=== PATIENT | male | born 1965 | race Caucasian/White ===

== ENCOUNTER 2018-08-29 08:25 | Observation (INO) ==
--- NOTE | 2018-08-21 09:21 | Anesthesiology Consultation ---
Date of Service August 21, 2018 Assessment & Plan (1) Encounter for pre-operative examination: -No previous anesthesia records. -Patient does have known sinus infection and has an elevated WBC from that. Is seeing PCP today for that. Can repeat CBC on AM day of surgery at anesthesia /surgeon's discretion. Patient aware to let surgeon know if he is still symptomatic as surgery date approaches. Chart Review Chart Review: Acceptable Risk for Surgery and Patient seen in Pre Admission Testing Consults Requested none Teaching & Discussion Pre-Anesthesia Teaching/Discussion Notes: Instructed NPO after midnight before surgery. History Surgery Operation Date: 08/29/18 09:35 Proposed Procedures p Right Parotidectomy - Fernanda Ross MD Height/Weight Height: 6 ft 2 in Weight: 116.3 kg Allergies Allergy/AdvReac Type Severity Reaction Status Date / Time No Known Allergies Allergy Verified 08/19/18 15:59 Medications Home Medications Medication Instructions Recorded Confirmed Last Taken No Known Home Medications 08/19/18 08/19/18 Unknown Past Medical History Medical History Benign parotid tumor Exercise / Class Metabolic Activity II 4-5 Yardwork/Stairs/Walk up hill (Works in a steel mill and moves constantly. Able to climb FOS. Denies CP or SOB with activity. ) Past Surgical History Surgical History H/O hand surgery Left 3rd finger reattachment History of colonoscopy History of esophagogastroduodenoscopy (EGD) History of tonsillectomy Past Anesthesia History No Hx of Anesthesia Complications and No Family Hx of Anesthesia Complications History of PONV No Hx of PONV and No Hx of Motion Sickness Social History Smoking Status: Current every day smoker tobacco type: cigarettes Smoking cigarettes per day: 1 PPD X 18 YEARS Do You Dip or Chew Tobacco: No (QUIT) Hx Alcohol Use: Yes Alcohol type: beer alcohol intake frequency: a few times a month Hx Substance Use: No Review of Systems Patient denies chest pain, shortness of breath, dyspnea on exertion, wheezing, palpitations. +Joint Pain (Knees occasionally) +Acid Reflux (rarely, nothing that requires medications) +Cough (in the morning) Physical Exam Vital Signs BP: 131/73 P: 59 R: 16 T: 98.0 SPO2: 96% on RA Constitutional + obese ENMT Thyromental Distance: > or= 3.5 Finger Breadths (3.5) Mallampati Class: II Neck normal visual inspection, trachea midline and + facial hair (Advised); neck extension not limited Respiratory normal respiratory effort Auscultation: lungs clear to auscultation bilaterally Cardiovascular Rate/Rhythm: regular rate and regular rhythm Heart Sounds: no murmur Vessels: no carotid bruit Neurologic moves all extremities Psychiatric Orientation: alert and oriented x 3 Testing Electrocardiogram Date: 08/21/18 Findings: + SB @ (49) Laboratory Results 08/21/18 09:50 Patient currently has known sinus infection. Has appointment today with PCP to get antibiotic. Knows to let surgeon know if he is still symptomatic as the surgery date approaches next week.
[2018-08-21 10:46] LABS: Basophils # (auto) 0.05 K/uL (0-0.2); Basophils % (auto) 0.3 %; Eosinophils # (auto) 0.11 K/uL (0-0.5); Eosinophils % (auto) 0.8 %; Hematocrit (blood only) 46.3 % (42-52); Hemoglobin 16.7 g/dL (14.0-18.0); Immature Granulocytes # (auto) 0.04 K/uL (0.00-0.02); Immature Granulocytes % (auto) 0.3 %; Lymphocytes # (auto) 1.71 K/uL (1.2-3.4); Lymphocytes % (auto) 11.8 %; Mean Corpuscular Hgb Conc 36.1 g/dL (32-36); Mean Corpuscular Volume 87.9 fL (80-100); Mean Platelet Volume 8.9 fL (7.4-10.4); Monocytes # (auto) 1.19 K/uL (0.11-0.59); Monocytes % (auto) 8.2 %; Neutrophils # (auto) 11.41 K/uL (1.4-6.5); Neutrophils % (auto) 78.6 %; Platelet Count 299 K/uL (130-400); RDW Coefficient of Variation 12.7 % (11.5-14.5); RDW Standard Deviation 40.6 fL (36.4-46.3); Red Blood Count 5.27 M/uL (4.7-6.1); White Blood Count 14.51 K/uL (4.8-10.8)
--- NOTE | 2018-08-28 12:24 | History & Physical Report ---
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 He was explained the procedure with its complications and understood and desires to proceed with surgery. Allergies Allergy/AdvReac Type Severity Reaction Status Date / Time No Known Allergies Allergy Verified 08/19/18 15:59 Home Medications Home Medications Medication Instructions Recorded Confirmed Type No Known Home Medications 08/19/18 08/19/18 History Past Med/Surg History Medical History Benign parotid tumor Surgical History H/O hand surgery Left 3rd finger reattachment History of colonoscopy History of esophagogastroduodenoscopy (EGD) History of tonsillectomy Social History Preferred Language: Serbian Communication Ability: Effective Newsc[employer] Director Required: No Beliefs That Will Affect Care: None Current Living Situation: Spouse Other Information That Helps Us Care for You: No Feels Safe at Home: Yes Safety Concerns: Feels Safe At This Time Smoking Status: Current every day smoker Tobacco Type: cigarettes Cigarettes Per Day: 1 PPD X 18 YEARS Do You Dip or Chew Tobacco: No (QUIT) Second Hand Exposure: No Tobacco Cessation Education Requested by Patient: No Hx Alcohol Use: Yes Alcohol type: beer Hx Substance Use: No Physical Exam Constitutional: WD/WN, vitals as above Eyes: PERRL, conjunctivae normal, anicteric sclerae ENMT: external ear and nose normal, oropharynx normal Neck: 2 cm right parotid mass Respiratory: normal respiratory effort, lungs clear to auscultation Cardiovascular: RRR, no murmur, no edema
[~2018-08-29 08:25] MED LIST: LR 15ML/HR IV SCH
[2018-08-29] MEDS ORDERED: ATROPINE SULFATE 0.1 MG/ML 10ML SYR IV PRN ×2 (08:42→14:08)
[2018-08-29] MEDS ORDERED: ePHEDrine sulfate 50 MG/ML AMP IV PRN ×2 (08:42→14:08)
[2018-08-29] MEDS ORDERED: PHENYLEPHRINE 100MCG/ML 5ML SYR IV PRN ×2 (08:42→14:10)
[2018-08-29] MEDS ORDERED: ONDANSETRON INJ 2 MG/ML 2 ML VIAL IV PRN ×3 (08:42→14:09)
[2018-08-29] MEDS ORDERED: PROMETHAZINE HCL 12.5 MG in SODIUM CHLORIDE 0.9% 50 ML IV PRN ×2 (08:42→14:10)
[2018-08-29] MEDS ORDERED: HYDROmorphone INJ 1 MG/ML SYRINGE IV PRN ×2 (08:42→14:09)
[2018-08-29] MEDS ORDERED: fentaNYL citrate 100 MCG/2 ML VIAL IV PRN (08:42)
[2018-08-29] MEDS ORDERED: LIDOCAINE HCL 2% 2 ML VIAL/AMP(20MG/ML) INFIL ONE (08:54)
[2018-08-29] MEDS ORDERED: PROPOFOL IV EMULSION 10 MG/ML 20 ML VIAL IV ONE ×2 (08:54→12:07)
[2018-08-29] MEDS ORDERED: NEOSTIGMINE METHYLSULFATE 5 MG/5 ML SYR ONE (08:54)
[2018-08-29] MEDS ORDERED: DEXAMETHASONE SOD INJ 4 MG/ML VIAL ONE (08:54)
[2018-08-29] MEDS ORDERED: GLYCOPYRROLATE 0.2 MG/ML VIAL ONE (08:54)
[2018-08-29] MEDS ORDERED: MIDAZOLAM HCL 1 MG/ML 2ML VIAL ONE (08:54)
[2018-08-29] MEDS ORDERED: ONDANSETRON INJ 2 MG/ML 2 ML VIAL ONE (08:54)
[2018-08-29] MEDS ORDERED: ESMOLOL HCL INJ 10 MG/ML 10ML VIAL IV ONE ×2 (08:55)
[2018-08-29] MEDS ORDERED: fentaNYL citrate 100 MCG/2 ML VIAL ONE ×3 (08:55→12:49)
[2018-08-29] MEDS ORDERED: BACITRACIN OINT 15 GM TUBE ONE (10:48)
--- NOTE | 2018-08-29 10:50 | History & Physical Bridge Note ---
Date of Service August 29, 2018 History & Physical Bridge Note I have examined the patient, reviewed the History & Physical and in the interval since the performance of the History & Physical I have noted the following changes of clinical significance: no changes noted
[2018-08-29] MEDS ORDERED: CEFAZOLIN 2000MG 2,000 MG/15 ML SYR IV ONE (11:56)
[2018-08-29] MEDS ORDERED: LIDOCAINE/EPINE 2% 1:100,000 20ML INFIL ONE (12:03)
[2018-08-29] MEDS ORDERED: ALBUTEROL HFA INHALER 8.5 GM ONE (13:11)
[2018-08-29] MEDS ORDERED: OXYCODONE/ACETAMINOPHEN 5mg/325mg TAB PO PRN (13:26)
--- NOTE | 2018-08-29 13:26 | Post Operative Brief Note ---
Immediate Post Op Note v1 Date of Surgery August 29, 2018 Pre & Post Diagnosis Operation Date: 08/29/18 10:05 Pre-Op Diagnosis: Right Parotid Mass Post-Op Diagnosis: Right Parotid Mass Procedure Operation Date: 08/29/18 10:05 Actual Procedures p Right Parotidectomy(Right) - Fernanda Ross MD Surgeon Fernanda Ross MD [employer] none Estimated Blood Loss 50 Findings Consistent with Post-Op Diagnosis parotid mixed tumor Specimens right parotid, superficial lobe Drains Herminio Drain (1/" [place])
--- NOTE | 2018-08-29 13:46 | Operative Report ---
Post Operative Report Pre & Post Diagnosis Operation Date: 08/29/18 10:05 Pre-Op Diagnosis: Right Parotid Mass Post-Op Diagnosis: Right Parotid Mass Procedure Operation Date: 08/29/18 10:05 Actual Procedures p Right Parotidectomy(Right) - Fernanda Ross MD Surgeon Fernanda Ross MD Supervisor Dumping none Estimated Blood Loss 50 Findings Consistent with Post-Op Diagnosis Specimens Right parotid, superficial lobe Drains Herminio Anesthesia Type General Complications none Disposition Accompanied Patient To Recovery: Yes Disposition: Recovery Room Indications 52-year-old gentleman with 2 cm benign mixed tumor of the right parotid on needle biopsy Description of Procedure 52-year-old gentleman with right parotid mass was brought to the operating room, properly identified, prepped and draped in the usual sterile manner after general endotracheal anesthesia. The incision was a parotid incision following the preauricular crease and then around the lobule of the ear to the mastoid and then down curvilinearly to the neck 2 cm below the angle of the mandible. Incision was made using the 15 blade down through the skin subcutaneous layer a nd platysma layer. Inferiorly the parotid was from the sternocleidomastoid muscle posteriorly preserving the posterior branch of the greater auricular nerve. Superiorly the parotid was from the tragal cartilage and the tragal pointer was followed medially to find the facial nerve which was approximately 1.5 cm medial to the tragal pointer. The nerve was followed laterally and anteriorly dissecting out the temporal zygomatic branch and then the buccal branch and then the marginal mandibular and cervical branches following these branches anteriorly until the nerves exited the parotid gland blunt dissection was performed along the nerve with a hemostat and sharp dissection was used to to separate the superficial lobe from the deep lobe in between the nerve branches. Bleeders were controlled using the bipolar cautery. In this manner the entire lobe was removed and the wound was irrigated with copious amounts of saline and the nerve inspected and noted to be intact. [place] drain was placed in the depth of the wound and the incision was closed with interrupted 4-0 Vicryl sutures subcutaneously and interrupted 4-0 nylon sutures on the skin. A light pressure dressing was placed. He tolerated the procedure well and was taken to the recovery area in satisfactory condition. I attest to the content of the Intraoperative Record and any orders documented therein. Any exceptions are noted below.
[2018-08-29] MEDS: fentaNYL citrate 100 MCG/2 ML VIAL IV PRN ×4 (14:12→14:27)
--- NOTE | 2018-08-29 15:24 | Anesthesiology Progress Note ---
Date of Service August 29, 2018 Anesthesia Post Procedure Vital Signs Vital Signs: Temp Pulse Pulse Resp BP Pulse Ox 08/29/18 14:53 36.5 C 55 L 15 122/57 L 93 08/29/18 14:44 36.5 C 68 15 134/65 92 08/29/18 14:33 36.5 C 65 15 136/72 92 08/29/18 14:23 36.5 C 79 17 130/73 93 08/29/18 14:15 86 24 127/75 93 08/29/18 14:05 90 21 134/75 90 08/29/18 13:55 100 H 17 129/84 94 08/29/18 13:45 61 21 121/61 94 08/29/18 13:39 36.8 C 75 16 126/67 94 08/29/18 08:47 36.8 C 58 L 18 142/82 H 93 Pain Intensity Right Neck: Pain Intensity: 4 Transfer of Care Handoff Completed per policy Notes Mental Status: alert / awake / arousable Patient Amnestic to Procedure: Yes Nausea / Vomiting: adequately controlled Pain: adequately controlled Airway Patency, RR, SpO2: stable & adequate BP & HR: stable & adequate Hydration State: stable & adequate Anesthetic Complications: no major complications apparent
[2018-08-29] MEDS: LACTATED RINGER'S 1,000 ML IV SCH (16:15)
[2018-08-29] MEDS ORDERED: ACETAMINOPHEN SOL 650 MG/20.3 ML UDC PO PRN (19:00)
[2018-08-30] MEDS: LACTATED RINGER'S 1,000 ML IV SCH (07:16)
[2018-08-30] MEDS ORDERED: BACITRACIN OP OINT PER APPLICATION CHARGE OP ONE (10:09)
--- NOTE | 2018-08-30 10:17 | Surgery Progress Note ---
Date of Service August 30, 2018 Assessment & Plan (1) Pleomorphic adenoma of parotid gland: facial function should return, discharge to home with , recheck in my office 10 days Subjective improving Physical Exam Physical Exam: drain removed, no sign of hematoma, minimal blood minimal facial weakness at corner of mouth Results & Data Vital Signs (Past 12 Hours) Vital Signs Temp Pulse Pulse Resp BP BP Pulse Ox 08/30/18 08:00 36.6 C 52 L 15 142/70 H 92 08/30/18 03:55 36.6 C 53 L 18 105/65 95 08/29/18 23:16 36.9 C 45 L 17 107/62 92
--- NOTE | 2018-09-01 16:53 | Discharge Summary ---
Date of Service September 01, 2018 Admission HPI Per Admitting Provider 52-year-old with sudden onset of right neck mass 10 months ago gradually getting bigger with needle biopsy showing benign mixed tumor, scheduled for right superficial parotidectomy because of the possibility of increase in size and also malignant transformation. He was explained the procedure with its complications and understood and desires to proceed with surgery. Admission Exam (Per Admitting) Constitutional WD/WN, vitals as above Eyes PERRL, conjunctivae normal, anicteric sclerae ENMT external ear and nose normal, oropharynx normal Respiratory normal respiratory effort, lungs clear to auscultation Cardiovascular RRR, no murmur, no edema Discharge Data Procedures Performed Operation Date: 08/29/18 10:05 Actual Procedures p Right Parotidectomy(Right) - Fernanda Ross MD Hospital Course (1) Pleomorphic adenoma of parotid gland: facial function should return, discharge to home with , recheck in my office 10 days
== END 2018-08-30 11:50 | disposition home or self-care (01) ==
LOC: ASU 08:25 → 3N 08:25 → PAT 08:25